=== PATIENT | male | born 1960 | race American Indian/Alaskan Native ===

== ENCOUNTER 2016-10-18 13:00 | Emergency (ER) | payer OTHER ==
[2016-10-18 13:21] VITALS: BP 115/72; PULSE 69; RESP 16; TEMP 98.1; O2SAT 98
--- NOTE | 2016-10-18 13:35 | C.PDOC ---
History Of Present Illness 55yo male, presents to the emergency department, requesting detox from Heroin. Patient denies any withdrawal symptoms. No nausea/vomiting, fevers or chills. Time Seen by Provider: 10/18/16 13:28 Chief Complaint (Nursing): Substance Abuse History Per: Patient History/Exam Limitations: no limitations Onset/Duration Of Symptoms: Days Past Medical History Reviewed: Historical Data, Nursing Documentation, Vital Signs Vital Signs: Last Vital Signs Temp 98.1 F 10/18/16 13:19 Pulse 69 10/18/16 13:19 Resp 16 10/18/16 13:19 BP 115/72 10/18/16 13:19 Pulse Ox 98 10/18/16 14:12 Family History: States: No Known Family Hx - Social History Hx Alcohol Use: Yes Hx Substance Use: Yes - Immunization History Hx Tetanus Toxoid Vaccination: Yes Hx Influenza Vaccination: Yes Review Of Systems Except As Marked, All Systems Reviewed And Found Negative. Constitutional: Negative for: Fever Cardiovascular: Negative for: Chest Pain, Palpitations Respiratory: Negative for: Shortness of Breath Gastrointestinal: Negative for: Vomiting Neurological: Negative for: Weakness, Numbness Psych: Negative for: Suicidal ideation Physical Exam - Physical Exam Appears: Non-toxic, No Acute Distress Skin: Warm, Dry, No Rash Nose: Normal Neck: Normal ROM Respiratory: No Accessory Muscle Use Extremity: Normal ROM Neurological/Psych: Oriented x3 ED Course And Treatment O2 Sat by Pulse Oximetry: 98 Progress Note: Case was discussed w/ form worker, who states that there are no detox beds available. Patient made aware; Pt will be discharged w/ a list of detox programs, and information for the detox co-ordinator/instructions for pre- screening process. Patient is agreeable with plan. All questions answered. - Physician Consult Information Time Consulting Physician Contacted: 13:29 Outcome Of Conversation: D/W CRISIS, NO BED AVAIL. Disposition Counseled Patient/Family Regarding: Diagnosis, Need For Followup - Disposition Referrals: [facility] [Outside] [facility] [Outside] [facility] [Provider Group] [facility] [Other] Disposition: HOME/ ROUTINE Disposition Time: 13:29 Condition: GOOD Instructions: Narcotic Abuse (ED) - Clinical Impression Clinical Impression: Narcotic abuse - Scribe Statement The provider has reviewed the documentation as recorded by the Scribgarland Nuno All medical record entries made by the Scribe were at my direction and personally dictated by me. I have reviewed the chart and agree that the record accurately reflects my personal performance of the history, physical exam, medical decision making, and the department course for this patient. I have also personally directed, reviewed, and agree with the discharge instructions and disposition.
== END 2016-10-18 13:55 | disposition home or self-care (01) ==
LOC: C.ER 13:00
DX: F11.10 Opioid abuse, uncomplicated (principal)

== ENCOUNTER 2017-05-11 19:52 | Inpatient (IN) | payer MEDICAID, OTHER ==
[2017-05-11 20:32] LABS: BASO % 0.7 % (0.0-2.0); EOS # 0.1 K/uL (0.0-0.7); EOS % 1.8 % (0.0-4.0); HEMATOCRIT 36.1 % (35.0-51.0); LYMPH # 2.5 K/uL (1.0-4.3); LYMPH % 38.3 % (20.0-40.0); MEAN CELL VOLUME 89.4 fL (80.0-94.0); MEAN CORPUSCULAR HEMOGLOBIN 29.7 pg (27.0-31.0); MEAN CORPUSCULAR HGB CONC 33.2 g/dL (33.0-37.0); MEAN PLATELET VOLUME 6.9 fL (7.2-11.7); MONO # 0.4 K/uL (0.0-0.8); MONO % 6.5 % (0.0-10.0); RED CELL DISTRIBUTION WIDTH 15.1 % (11.5-14.5); WHITE BLOOD COUNT 6.5 K/uL (4.8-10.8)
[2017-05-11 20:37] LABS: RBC URINE 1 /hpf (0-3); URINE BILIRUBIN NEGATIVE (NEGATIVE); URINE COLOR Yellow (YELLOW); URINE GLUCOSE (UA) NORMAL (Normal); URINE KETONE NEGATIVE (NEGATIVE); URINE LEUKOCYTE ESTERASE NEG Leu/uL (Negative); URINE PROTEIN NEGATIVE (NEGATIVE); URINE UROBILINOGEN NORMAL mg/dL (0.2-1.0); WBC URINE < 1 /hpf (0-5)
[2017-05-11 20:42] LABS: URINE BLOOD TRACE (NEGATIVE)
[2017-05-11 20:45] LABS: ALB/GLOB RATIO 0.9 (1.0-2.1); ALCOHOL SERUM 204 mg/dl (0-10); ALKALINE PHOSPHATASE 70 U/L (38-126); ALT/SGPT 49 U/L (21-72); AST/SGOT 44 U/L (17-59); BILIRUBIN,TOTAL 0.2 mg/dL (0.2-1.3); BLOOD UREA NITROGEN 11 mg/dL (9-20); CALCIUM 8.2 mg/dl (8.6-10.4); CARBON DIOXIDE 23 mmol/L (22-30); CHLORIDE 113 mmol/L (98-107); GFR AFRICAN-AMERICAN > 60; GLUCOSE,RANDOM 106 mg/dL (75-110); POTASSIUM 3.9 mmol/L (3.6-5.2); SODIUM 147 mmol/L (132-148); TOTAL PROTEIN 7.8 g/dL (6.3-8.3)
--- NOTE | 2017-05-11 20:55 | C.PDOC ---
History Of Present Illness 56 yr old male presents to the ER for alcohol detox. Patient is a pre-screened. Denies fever, chills, nausea, vomiting, headache, SI or HI. Time Seen by Provider: 05/11/17 20:21 Chief Complaint (Nursing): Substance Abuse History Per: Patient History/Exam Limitations: no limitations Onset/Duration Of Symptoms: Days Suicide/Self Injury Attempted (Context): None Modifying Factor(s): Alcohol Past Medical History Reviewed: Historical Data, Nursing Documentation, Vital Signs Vital Signs: Last Vital Signs Temp 98.1 F 05/11/17 23:32 Pulse 78 05/11/17 23:32 Resp 20 05/11/17 23:32 BP 112/74 05/11/17 23:32 Pulse Ox 98 05/11/17 23:32 Family History: States: No Known Family Hx - Social History Hx Alcohol Use: Yes Hx Substance Use: Yes - Immunization History Hx Tetanus Toxoid Vaccination: Yes Hx Influenza Vaccination: Yes Review Of Systems Except As Marked, All Systems Reviewed And Found Negative. Constitutional: Negative for: Fever, Chills Gastrointestinal: Negative for: Nausea, Vomiting Neurological: Negative for: Headache Psych: Negative for: Suicidal ideation Physical Exam - Physical Exam Appears: Non-toxic, No Acute Distress Skin: Warm, Dry, No Rash Head: Atraumatic, Normacephalic Eye(s): bilateral: Normal Inspection, PERRL, EOMI Oral Mucosa: Moist Neck: Normal, Normal ROM, Supple Cardiovascular: Rhythm Regular, No Murmur Respiratory: Normal Breath Sounds, No Rales, No Rhonchi, No Stridor, No Wheezing Gastrointestinal/Abdominal: Normal Exam, Soft, No Tenderness, No Guarding, No Rebound Extremity: Normal ROM, No Swelling Neurological/Psych: Oriented x3, Normal Speech, Normal Motor, Normal Sensation ED Course And Treatment - Laboratory Results Result Diagrams: 05/11/17 20:29 05/11/17 20:29 O2 Sat by Pulse Oximetry: 97 (RA) Pulse Ox Interpretation: Normal Progress Note: Pt was evaluated by crisis and is admitted to detox under dr Hill Medical Decision Making Medical Decision Making: PLAN: * Alcohol Serum * Drug Screen * CBC * CMP * Urinalysis Disposition - Disposition Disposition: HOSPITALIZED Disposition Time: 00:54 Condition: STABLE - Clinical Impression Clinical Impression: Alcohol use disorder, severe, dependence, Opioid use disorder, severe, dependence - PA / SERVICE TECH / Resident Statement MD/DO has reviewed & agrees with the documentation as recorded. - Scribe Statement The provider has reviewed the documentation as recorded by the Scribe Karen Evangelista All medical record entries made by the Malenaibgarland were at my direction and personally dictated by me. I have reviewed the chart and agree that the record accurately reflects my personal performance of the history, physical exam, medical decision making, and the department course for this patient. I have also personally directed, reviewed, and agree with the discharge instructions and disposition.
--- NOTE | 2017-05-12 01:39 | PCM.BM ---
<Britney Romero - Last Filed: 05/12/17 01:38> Treatment Plan Problems - Problems identified on initial assessmt Opiates Abuse Date Initiated: 05/12/17 Time Initiated: 00:45 Assessment reference: NA Status: Active Treatment assets and liabiliti Patient Assests: physically healthy, good support system, negotiates basic needs Patient Liabilities: substance abuse (Opiates, ETOH, History of crack. ) - Milieu Protocol Maintain good personal hygiene: daily Encourage regular showers, daily Remind patient to perform daily oral care Conduct patient checks and document Observation sheet: Q15 minutes Maintain personal safety: every shift Educate patient to report safety concerns to staff, every shift Monitor environment for contraband/sharps Medication safety: Monitor for expected outcome, potential side effects: every shift, Assess barriers to learning: every shift, Assess readiness for medication education: every shift <Barbra Painting - Last Filed: 05/12/17 09:47> - Diagnosis (1) Alcohol use disorder, severe, dependence Status: Acute Interventions: 05/12/17 09:47 * Assess 7x/week regarding severity of withdrawal * Educate regarding risks, benefits, side effects and alternatives of medications * Use Motivational Interviewing for abstinence * Use CBT for relapse prevention * Medication management for withdrawal symptoms * Encourage medication assisted treatment * (2) Opioid use disorder, severe, dependence Status: Acute Interventions: 05/12/17 09:47 * Assess 7x/week regarding severity of withdrawal * Educate regarding risks, benefits, side effects and alternatives of medications * Use Motivational Interviewing for abstinence * Use CBT for relapse prevention * Medication management for withdrawal symptoms * Encourage medication assisted treatment * <Areli Lorenz - Last Filed: 05/13/17 11:25> Family Contact Family involvement: Famliy/SO not involved Family contact: Patient declines to allow family contact at present - Goals for Treatment Patient goals for treatment: Complete detox and apply for LTR. Discharge/Continuing Care - Education Needs Education Needs: Patient Medication, Patient Diagnosis/Disease Process, Patient Coping Skills, Patient Anger Management skills, Patient Placement options, Patient Community resources - Discharge Discharge Criteria: No longer exhibiting s/s of withdrawal, Reduction of target symptoms Discharge to:: Substance Abuse Rehab - Treatment Team Participation Patient/Family/SO Statement: 05/13/17 11:24 "I wanna go to [facility]." Discussed with Family/SO: No Was Patient/Family/SO present at Treatment Team Meeting: Yes
[2017-05-12] MEDS: traZODone 25 mg Tab PO PRN ×2 (01:41→21:51)
[2017-05-12] MEDS ORDERED: Aluminum Hydroxide/Magnesium Hydroxide Susp (30 mL) PO PRN (09:49)
--- NOTE | 2017-05-12 14:54 | PCM.PSYCH ---
Initial Psychiatric Evaluation - Initial Psychiatric Evaluation Type of Admission: Voluntary Legal Status: Capacity Chief Complaint (in patient's own words): "I need help" History of Present Illness and Precipitating Events: The pt is seen, chart reviewed and case discussed This is a 56 year old male, who has been homeless for "a few weeks." He states that previously he was living in [place]. He is single with no children. 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 Patient reports heroin use via snorting, last used 4 bags yesterday and average 1 bundle daily for 17 years. He also reports alcohol use, last drank 4 beers and 2 liquor shots yesterday and average 4-6 cans of beer daily. He denies any cocaine/LSD/PCP/Xanax/benzodiazepine/tobacco use. He reports some withdrawal symptoms at this time. Patient reports completing "short, shelter detox" detox in [facility] recently but he relapsed immediately. He also did rehab in the past. He hopes to return to his mother's house for support and is open to attending an IOP in [place]. Past medical history: denies Past psychiatric history: denies Family psychiatric history: denies Family substance use: denies Current Medications: Active Medications Generic Name Dose Route Start Last Admin Trade Name Freq PRN Reason Stop Dose Admin Al Hydrox/Mg Hydrox/Simethicone 30 ml 05/12/17 09:49 Maalox 30 Ml PO TID PRN Indigestion / Heartburn Clonidine HCl 0.1 mg 05/12/17 09:49 05/12/17 12:16 Catapres PO 0.1 mg Q8 PRN Administration COWS Score More or Equal to 5 Gabapentin 300 mg 05/12/17 10:00 05/12/17 10:43 Neurontin PO 300 mg BID KELLY Administration Hydroxyzine HCl 25 mg 05/12/17 01:23 05/12/17 01:41 Atarax PO 25 mg Q6H PRN Administration Anxiety Loperamide HCl 2 mg 05/12/17 09:49 Imodium PO Q8 PRN Diarrhea Ondansetron HCl 4 mg 05/12/17 09:49 Zofran Tab PO Q8 PRN Nausea/Vomiting Trazodone HCl 50 mg 05/12/17 01:45 05/12/17 01:41 Desyrel PO 50 mg HS PRN Administration Insomnia Past Psychiatric History - Past Psychiatric History Previous Treatment History: None Pertinent Medical Hx (Current Medical&Sleep Prob, Allergies): Allergies Allergy/AdvReac Type Severity Reaction Status Date / Time No Known Allergies Allergy Verified 05/11/17 19:57 No Known Home Med 10/18/16 Review of Systems - Review of Systems All systems: reviewed and no additional remarkable complaints except - Neurological Neurological: absent: Convulsions, Tremor - Psychiatric Psychiatric: Abnormal Sleep Pattern, Anxiety, Change in Appetite, Depression ( mild), Irritability. absent: Auditory Hallucinations, Hallucinations, Homicidal Ideation, Suicidal Ideation, Visual Hallucinations Mental Status Examination - Personal Presentation Personal Presentation: Looks stated age - Affect Affect: Constricted, Depressed - Motor Activity Motor Activity: Calm - Reliability in Providing Information Reliability in Providing Information: Poor, due to altered mood - Speech Speech: Organized - Mood Mood: Depressed, Anxious - Formal Thought Process Formal Thought Process: No Impairment - Obsessions/Compulsions Obsessions: No Compulsions: No - Cognitive Functions Orientation: Person, Place, Situation, Time Sensorium: Alert Attention/Concentration: Attentive Abstract Thinking: [place] Estimate of Intelligence: Average Judgement: Intact, as evidence by: Insight regarding need for hospitalization Memory: Recent intact, as evidence by: Ability to recall events of the day, Remote intact, as evidenced by: Abilit to recall sig. life events - Risk Risk: Diminished functioning - Strength & Assets Inventory Strength & Assets Inventory: Cooperative - Limitations Limitations: Other DSM 5 DX - DSM 5 DSM 5 Diagnosis: Opioid use disorder, severe Opioid withdrawal Alcohol use disorder, severe Alcohol withdrawal - Recommended/Plan of Treatment Treatment Recommendations and Plan of Treatment: Methadone detox No need for alcohol detox he drinks less and was out not too long Gabapentin for augmentation As needed medications Attend groups and activities Supportive therapy and psychoeducation [place] for abstinence CBT for relapse prevention Encourage MAT Refer to rehab or IOP, and self-help groups. 32 min Projected ELOS: 4-5 days Prognosis: Good with treatment Discharge Plan and Discharge Criteria: No withdrawal symptoms Refer to rehab
--- NOTE | 2017-05-13 15:00 | PCM.PYCHPN ---
Psychiatric Progress Note - Psychiatric Progress Note Patient seen today, length of contact: 16 min Patient Chief Complaint: "I'm great" Problems Identified/Issues Discussed: This patient was seen, chart reviewed, and case discussed with staff. Patient reports feeling "much better," reporting improved sleep and mood. He denies any withdrawal symptoms. Patient is compliant with medications and denies any side effects. Symptoms are improving but need more time to stabilize. After care discussed, was initially considering outpatient but is now considering inpatient/long-term rehab after discussing with sister. Support and psychoeducation given. Medication Change: Yes (Methadone taper ) Medical Record Reviewed: Yes Mental Status Examination - Cognitive Function Orientation: Person, Place, Situation, Time Memory: Intact Attention: WNL Concentration: WNL Association: WNL Fund of Knowledge: WNL - Mood Mood: Anxious - Affect Affect: Broad - Speech Speech: Appropriate - Formal Thought Process Formal Thought Process: No Impairment - Suicidal Ideation Suicidal Ideation: No - Homicidal Ideation Homicidal Ideation: No Goal/Treatment Plan - Goal/Treatment Plan Need for Continued Stay: Remain at risks for inpatient hospitalization, Discharge may exacerbated symptoms, Severe functional impairment Progress Toward Problem(s) and Goals/Treatment Plan: Methadone detox No need for alcohol detox he drinks less and was out not too long Gabapentin for augmentation As needed medications Attend groups and activities Supportive therapy and psychoeducation [place] for abstinence CBT for relapse prevention Encourage MAT Refer to rehab or IOP, and self-help groups. Estimated Date of D/C: 05/14/17
[2017-05-14 06:47] VITALS: O2SAT 100
[2017-05-14 08:44] VITALS: BP 118/78; PULSE 65; RESP 20; TEMP 98.2
--- NOTE | 2017-05-14 10:16 | PCM.PYCHDC ---
Mental Status Examination - Mental Status Examination Orientation: Person, Place, Situation, Time Memory: Intact Mood: Neutral Affect: Constricted Speech: Soft Attention: WNL Concentration: WNL Association: WNL Fund of Knowledge: WNL Formal Thought Process: No Impairment Description of patient's judgement and insight: good, fair Psychotic Thoughts and Behaviors: denies any AVH Suicidal Ideation: No Current Homicidal Ideation?: No Discharge Summary - Discharge Note Reason for Hospitalization: The pt is seen, chart reviewed and case discussed This is a 56 year old male, who has been homeless for "a few weeks." He states that previously he was living in [place]. He is single with no children. 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 Patient reports heroin use via snorting, last used 4 bags yesterday and average 1 bundle daily for 17 years. He also reports alcohol use, last drank 4 beers and 2 liquor shots yesterday and average 4-6 cans of beer daily. He denies any cocaine/LSD/PCP/Xanax/benzodiazepine/tobacco use. He reports some withdrawal symptoms at this time. Patient reports completing "short, penitentiary detox" detox in [facility] recently but he relapsed immediately. He also did rehab in the past. He hopes to return to his mother's house for support and is open to attending an IOP in [place]. Consultations:: List each consultation separately and include: 1. Reason for request. 2. Findings. 3. Follow-up Summary of Hospital Course include:: 1. Description of specific treatment plan utilized for patients during their course of treatmen. 2. Summarize the time- course for resolution of acute symptoms and/or regressed behaviors. 3. Describe issues identified and worked on during hospitalization. 4. Describe medication utilized. 5. Describe medical problems identified and treated. 6. Reassessment of suicide risk Summary of Hospital Course: During the course of his stay, patient (pt) started progressively improving and he no longer remained irritable, depressed, and anxious. His mood and anxiety were improved and he started attending groups and meetings and started socializing. Patient denied any feelings of hopelessness, helplessness, and worthlessness, denied any problem with the sleep or appetite, denied suicidal ideation or homicidal ideation. Pt denied any auditory or visual hallucinations. Some changes were made in his current medications and patient was discharged on following medications. He tolerated these medications very well and denied any side effects. Pt is to attend [facility] rehab in [place]. - Final Diagnosis (DSM 5) Condition upon Discharge: STABLE DSM 5: Opioid use disorder, severe Opioid withdrawal Alcohol use disorder, severe Alcohol withdrawal Disposition: HOME/ ROUTINE Follow-up Treatment Plan: Education: Pt was educated and counseled about the risks and benefits of taking and not taking medications. Pt was educated and counseled about the risks of drinking and abusing drugs. Pt was educated and counseled to go to the ER or call 911 if pt develop suicidal ideation or homicidal ideation, worsening of symptoms or severe side effects of the meds. - Smoking Cessation Smoking Cessation Medication prescribed: No - Antipsychotic Medications Pt discharged on 2 or more routine antipsychotic medications: No
== END 2017-05-14 10:50 | disposition home or self-care (01) | DRG 895 ==
LOC: C.ER 19:52 → C.7D 05-12 00:08
PROC: HZ2ZZZZ Detoxification Services for Substance Abuse Treatment (ICD-10-PCS; principal; 2017-05-12)
PROC: HZ52ZZZ Individual Psychotherapy for Substance Abuse Treatment, Cognitive-Behavioral (ICD-10-PCS; 2017-05-12)
PROC: HZ42ZZZ Group Counseling for Substance Abuse Treatment, Cognitive-Behavioral (ICD-10-PCS; 2017-05-12)
PROC: HZ59ZZZ Individual Psychotherapy for Substance Abuse Treatment, Supportive (ICD-10-PCS; 2017-05-12)
PROC: HZ56ZZZ Individual Psychotherapy for Substance Abuse Treatment, Psychoeducation (ICD-10-PCS; 2017-05-12)
PROC: HZ46ZZZ Group Counseling for Substance Abuse Treatment, Psychoeducation (ICD-10-PCS; 2017-05-12)
DX: F10.230 Alcohol dependence with withdrawal, uncomplicated (principal); F11.23 Opioid dependence with withdrawal; Y90.7 Blood alcohol level of 200-239 mg/100 ml; Z59.0 Homelessness

== ENCOUNTER 2017-05-24 18:04 | Emergency (ER) | payer MEDICAID, OTHER ==
--- NOTE | 2017-05-24 19:11 | C.PDOC ---
History Of Present Illness Howie Yap is a 56 year old male, with no past medical history, who presents to the emergency department complaining of pain and swelling on right elbow onset since yesterday. Patient reports hitting his right elbow on a hard surface while at work yesterday. Patient states the pain is worst with movement. He denies any other medical complaints. PMD: None provided. Time Seen by Provider: 05/24/17 18:26 Chief Complaint (Nursing): Upper Extremity Problem/Injury History Per: Patient History/Exam Limitations: no limitations Onset/Duration Of Symptoms: Days (x1) Current Symptoms Are (Timing): Still Present Quality: "Pain" Severity: Mild Pain Scale Rating Of: 9 Exacerbating Factor(s): Movement Past Medical History Reviewed: Historical Data, Nursing Documentation, Vital Signs Vital Signs: Last Vital Signs Temp 98.6 F 05/24/17 20:04 Pulse 85 05/24/17 20:04 Resp 18 05/24/17 20:04 BP 122/77 05/24/17 20:04 Pulse Ox 96 05/24/17 21:07 - Medical History PMH: Denies: Diabetes, Hepatitis, HIV, HTN, Seizures, Sexually Transmitted Disease Surgical History: No Surg Hx - [facility] DETOXIFICATION SERVICES FOR SUBSTANCE ABUSE TREATMENT (05/12/17) [facility] FOR SUBSTANCE ABUSE TREATMENT, PSYCHOEDUCATION (05/12/17) [facility] FOR SUBSTANCE ABUSE, COGNITIVE BEHAVIORAL (05/12/17) INDIV PSYCHOTHERAPY FOR SUBSTANCE ABUSE TREATMENT, SUPPORT (05/12/17) INDIV PSYCHOTHERAPY FOR SUBSTANCE ABUSE, COGNITIV BEHAVIORAL (05/12/17) INDIV PSYCHOTHERAPY FOR SUBSTANCE ABUSE, PSYCHOEDUCATION (05/12/17) Family History: States: Unknown Family Hx - Social History Hx Tobacco Use: No (former) Hx Alcohol Use: No (former) Hx Substance Use: No (former) - Immunization History Hx Tetanus Toxoid Vaccination: Yes Hx Influenza Vaccination: Yes Review Of Systems Except As Marked, All Systems Reviewed And Found Negative. Musculoskeletal: Positive for: Arm Pain (right elbow w/ swelling) Physical Exam - Physical Exam Appears: Well, No Acute Distress Skin: Normal Color, Warm, Dry Head: Atraumatic, Normacephalic Eye(s): bilateral: Normal Inspection, PERRL, EOMI Neck: Normal, Normal ROM, Supple Extremity: No Normal ROM (limited), Tenderness (olecranon tender to palpation), No Deformity, Swelling (on olecranon) Neurological/Psych: Oriented x3, Normal Speech ED Course And Treatment O2 Sat by Pulse Oximetry: 96 (RA) Pulse Ox Interpretation: Normal Medical Decision Making Medical Decision Making: Initial Impression: right elbow pain Initial Plan: --Ext Upper w/o contrast right [CT] --Elbow right 3 views routine [RAD] --reevaluation 20:[address] FINDINGS: Bones/joints: A well corticated 5 mm bone fragment is noted adjacent to the coronoid process. Tiny bone fragments are noted posterior and adjacent to the olecranon. The radial head and distal humerus appear normal. Soft tissues: There is soft tissue swelling noted over the olecranon. IMPRESSION: 1. Soft tissue swelling in the region of the olecranon bursa could represent a fluid distended bursa or soft tissue hematoma 2. Small bone fragments noted adjacent to the olecranon. These could represent a fracture of the non-articular posterior margin of the olecranon at the triceps insertion site. Dystrophic calcification within the bursa/the distal triceps tendon is another consideration. 3. Well corticated bone fragment contiguous with the coronoid process. This could represent an old fracture or accessory ossicle. 22:50 -Will treat patient with long arm posterior splint. Upon provider reevaluation patient is feeling better, is medically stable, and requires no further treatment in the ED at this time. Patient will be discharged with Rx for Ultram. Counseling was provided and all questions were answered regarding diagnosis and need for follow up with orthopedist. There is agreement to discharge plan. Return if symptoms persist or worsen. Disposition - Disposition Referrals: Victor Manuel Jacobs III, MD [Staff Provider] - Disposition: HOME/ ROUTINE Disposition Time: 20:58 Condition: STABLE Additional Instructions: Follow up with Orthopedist within 1-2 days. Return to ED if feel worse. Prescriptions: traMADol [Ultram] 50 mg PO Q6 #30 tab Instructions: Elbow Fracture in Adults (ED) Forms: [facility] ([place]) - Clinical Impression Clinical Impression: Elbow fracture, right - Scribe Statement Win Gan All medical record entries made by the Scribe were at my direction and personally dictated by me. I have reviewed the chart and agree that the record accurately reflects my personal performance of the history, physical exam, medical decision making, and the department course for this patient. I have also personally directed, reviewed, and agree with the discharge instructions and disposition.
[2017-05-24 20:05] VITALS: BP 122/77; PULSE 85; RESP 18; TEMP 98.6
--- NOTE | 2017-05-24 20:10 | CT ---
EXAM: CT Right Upper Extremity Without Intravenous Contrast, Elbow EXAM DATE/TIME: Exam ordered 05/24/2017 7:11 PM CLINICAL HISTORY: 56 years old, male; Pain; Elbow; Right; Additional info: Elbow injury, abnormal xray TECHNIQUE: Axial computed tomography images of the right elbow without intravenous contrast. All CT scans at this facility use one or more dose reduction techniques, viz.: automated exposure control; ma/kV adjustment per patient size (including targeted exams where dose is matched to indication; i.e. head); or iterative reconstruction technique. Coronal and sagittal reformatted images were created and reviewed. COMPARISON: No relevant prior studies available. FINDINGS: Bones/joints: A well corticated 5 mm bone fragment is noted adjacent to the coronoid process. Tiny bone fragments are noted posterior and adjacent to the olecranon. The radial head and distal humerus appear normal. Soft tissues: There is soft tissue swelling noted over the olecranon. IMPRESSION: 1. Soft tissue swelling in the region of the olecranon bursa could represent a fluid distended bursa or soft tissue hematoma 2. Small bone fragments noted adjacent to the olecranon. These could represent a fracture of the non-articular posterior margin of the olecranon at the triceps insertion site. Dystrophic calcification within the bursa/the distal triceps tendon is another consideration. 3. Well corticated bone fragment contiguous with the coronoid process. This could represent an old fracture or accessory ossicle.
[2017-05-24 20:46] VITALS: O2SAT 96
--- NOTE | 2017-05-25 09:05 | RAD ---
PROCEDURE: Radiographs of the right elbow. HISTORY: injury COMPARISON: No prior. FINDINGS: BONES: Bone alignment and mineralization are normal. There are multiple ossific densities posterior to the olecranon process. There is no acute displaced fracture. A small ossific density superior to the coronoid process of ulna may represent an old fracture. JOINTS: Normal. No osteoarthritis. SOFT TISSUES: There is moderate posterior soft tissue swelling. JOINT EFFUSION: None. OTHER FINDINGS: None. IMPRESSION: Findings may represent olecranon bursitis with calcifications in the tendon. The possibility of a fracture is less likely in the absence of joint effusion however cannot be entirely excluded and correlation with point tenderness is advised.
== END 2017-05-24 21:04 | disposition home or self-care (01) ==
LOC: C.ER 18:04
DX: S42.402A Unspecified fracture of lower end of left humerus, initial encounter for closed fracture (principal); W22.8XXA Striking against or struck by other objects, initial encounter; Y92.89 Other specified places as the place of occurrence of the external cause; Y99.0 Civilian activity done for income or pay

== ENCOUNTER 2018-06-25 13:40 | Emergency (ER) | payer SELFPAY ==
[2018-06-25 14:00] VITALS: BMI 23.6
[2018-06-25 14:02] VITALS: RESP 18; O2SAT 98
--- NOTE | 2018-06-25 14:07 | C.PDOC ---
History Of Present Illness PT eloped prior to being seen Time Seen by Provider: 06/25/18 14:06 Chief Complaint (Nursing): Substance Abuse Past Medical History Vital Signs: Last Vital Signs Temp 99 F 06/25/18 14:00 Pulse 81 06/25/18 14:00 Resp 18 06/25/18 14:00 BP 112/77 06/25/18 14:00 Pulse Ox 98 06/25/18 14:00 - Medical History PMH: Denies: Diabetes, Hepatitis, HIV, HTN, Seizures, Sexually Transmitted Disease - [facility] Procedures DETOXIFICATION SERVICES FOR SUBSTANCE ABUSE TREATMENT (05/12/17) GROUP CHRONOMETER TESTER FOR SUBSTANCE ABUSE TREATMENT, PSYCHOEDUCATION (05/12/17) GROUP CHRONOMETER TESTER FOR SUBSTANCE ABUSE, COGNITIVE BEHAVIORAL (05/12/17) INDIV PSYCHOTHERAPY FOR SUBSTANCE ABUSE TREATMENT, SUPPORT (05/12/17) INDIV PSYCHOTHERAPY FOR SUBSTANCE ABUSE, COGNITIV BEHAVIORAL (05/12/17) INDIV PSYCHOTHERAPY FOR SUBSTANCE ABUSE, PSYCHOEDUCATION (05/12/17) Family History: States: Unknown Family Hx - Social History Hx Tobacco Use: No (former) Hx Alcohol Use: Yes (former) Hx Substance Use: Yes (heroin) - Immunization History Hx Tetanus Toxoid Vaccination: No Hx Influenza Vaccination: No Hx Pneumococcal Vaccination: No ED Course And Treatment O2 Sat by Pulse Oximetry: 98 Disposition - Disposition Disposition: AGAINST MEDICAL ADVICE Disposition Time: 14:26 Condition: UNKNOWN Forms: [facility] (B[place]ian) - Clinical Impression Clinical Impression: Desire for detoxification
[2018-06-25 14:09] VITALS: BP 148/89; PULSE 64; TEMP 98.5
== END 2018-06-25 14:17 | disposition left against medical advice (07) ==
LOC: C.ER 13:40
DX: Z02.89 Encounter for other administrative examinations (principal)

== ENCOUNTER 2018-06-26 19:49 | Inpatient (IN) | payer MEDICAID ==
[2018-06-26 19:49] VITALS: BMI 23.6
--- NOTE | 2018-06-26 20:32 | C.PDOC ---
History Of Present Illness 57 year old male presents to the Ed requesting detox for heroin abuse. Patient SI/HI, hallucinations, other medical complaints. Time Seen by Provider: 06/26/18 20:03 Chief Complaint (Nursing): Substance Abuse History Per: Patient History/Exam Limitations: no limitations Onset/Duration Of Symptoms: Days Current Symptoms Are (Timing): Still Present Suicide/Self Injury Attempted (Context): None Modifying Factor(s): Narcotics Associated Symptoms: denies: Depression, Suicidal Thoughts, Suicidal Plan Recent travel outside of the [place]: No Additional History Per: Patient Past Medical History Reviewed: Historical Data, Nursing Documentation, Vital Signs Vital Signs: Last Vital Signs Temp 98.5 F 06/26/18 20:02 Pulse 81 06/26/18 20:02 Resp 20 06/26/18 20:02 BP 126/74 06/26/18 20:02 Pulse Ox 98 06/26/18 20:02 - Medical History PMH: No Chronic Diseases Denies: Diabetes, Hepatitis, HIV, HTN, Seizures, Sexually Transmitted Disease Surgical History: No Surg Hx - [facility] Procedures DETOXIFICATION SERVICES FOR SUBSTANCE ABUSE TREATMENT (05/12/17) GROUP BOAT TESTER FOR SUBSTANCE ABUSE TREATMENT, PSYCHOEDUCATION (05/12/17) GROUP BOAT TESTER FOR SUBSTANCE ABUSE, COGNITIVE BEHAVIORAL (05/12/17) INDIV PSYCHOTHERAPY FOR SUBSTANCE ABUSE TREATMENT, SUPPORT (05/12/17) INDIV PSYCHOTHERAPY FOR SUBSTANCE ABUSE, COGNITIV BEHAVIORAL (05/12/17) INDIV PSYCHOTHERAPY FOR SUBSTANCE ABUSE, PSYCHOEDUCATION (05/12/17) Family History: States: Unknown Family Hx - Social History Hx Tobacco Use: No (former) Hx Alcohol Use: Yes (former) Hx Substance Use: Yes (heroin) - Immunization History Hx Tetanus Toxoid Vaccination: No Hx Influenza Vaccination: No Hx Pneumococcal Vaccination: No Review Of Systems Constitutional: Negative for: Fever, Chills Cardiovascular: Negative for: Chest Pain, Palpitations Respiratory: Negative for: Shortness of Breath Gastrointestinal: Negative for: Nausea, Vomiting, Abdominal Pain Skin: Negative for: Rash Neurological: Negative for: Weakness, Numbness Psych: Negative for: Depression, Suicidal ideation Physical Exam - Physical Exam Appears: Non-toxic, No Acute Distress Skin: Normal Color, Warm, Dry Head: Atraumatic, Normacephalic Eye(s): bilateral: Normal Inspection Neck: Normal ROM, Supple Chest: Symmetrical Cardiovascular: Rhythm Regular Respiratory: Normal Breath Sounds, No Rales, No Rhonchi, No Wheezing Gastrointestinal/Abdominal: Soft, No Tenderness, No Guarding, No Rebound Extremity: Normal ROM, No Tenderness, No Swelling Neurological/Psych: Oriented x3, Normal Speech, Normal Cognition Gait: Steady ED Course And Treatment - Laboratory Results Result Diagrams: 06/26/18 20:37 06/26/18 20:37 O2 Sat by Pulse Oximetry: 98 (ON RA) Pulse Ox Interpretation: Normal Medical Decision Making Medical Decision Making: Plan: * Labs * UA * Crisis 20:56 - Medically cleared Disposition - Disposition Disposition: HOSPITALIZED Disposition Time: 22:27 Condition: STABLE - Clinical Impression Clinical Impression: Opioid use disorder, severe, dependence - Scribe Statement The provider has reviewed the documentation as recorded by the Scribe Todd Quinn All medical record entries made by the Scribe were at my direction and person ally dictated by me. I have reviewed the chart and agree that the record accurately reflects my personal performance of the history, physical exam, medical decision making, and the department course for this patient. I have also personally directed, reviewed, and agree with the discharge instructions and disposition. Decision To Admit - Pt Status Changed To: Hospital Disposition Of: Inpatient - Admit Certification Admit to Inpatient:: After my assessment, the patient will require hospitalization for at least two midnights. This is because of the severity of symptoms shown, intensity of services needed, and/or the medical risk in this patient being treated as an outpatient. - InPatient: Physician Admission Certification: I certify that this patient requires 2 or more midnights of care for the following reason:: needs detox - . Bed Request Type: Detox Admitting Physician: Lulu Alva Patient Diagnosis: Opioid use disorder, severe, dependence
[2018-06-26 20:42] LABS: BASO % 0.8 % (0.0-2.0); EOS # 0.1 K/uL (0.0-0.7); EOS % 2.7 % (0.0-4.0); HEMOGLOBIN 13.6 g/dL (12.0-18.0); LYMPH # 1.3 K/uL (1.0-4.3); LYMPH % 24.3 % (20.0-40.0); MEAN CORPUSCULAR HEMOGLOBIN 30.7 pg (27.0-31.0); MEAN CORPUSCULAR HGB CONC 32.4 g/dL (33.0-37.0); MONO # 0.4 K/uL (0.0-0.8); MONO % 7.4 % (0.0-10.0); NEUT # 3.3 K/uL (1.8-7.0); NEUT % 64.8 % (50.0-75.0); NRBC % 0.1 % (0.0-2.0); RBC 4.41 Mil/uL (4.40-5.90); RED CELL DISTRIBUTION WIDTH 13.6 % (11.5-14.5); WHITE BLOOD COUNT 5.1 K/uL (4.8-10.8)
[2018-06-26 20:46] LABS: MEAN CELL VOLUME 94.9 fL (80.0-94.0)
[2018-06-26 20:55] LABS: ALB/GLOB RATIO 1.5 (1.0-2.1); ALBUMIN 4.7 g/dL (3.5-5.0); ALT/SGPT 31 U/L (21-72); AST/SGOT 57 U/L (17-59); BLOOD UREA NITROGEN 15 mg/dL (9-20); CALCIUM 9.2 mg/dl (8.6-10.4); GFR NON-AFRICAN AMERICAN 53
[2018-06-26 20:58] LABS: SQUAMOUS EPITHIAL < 1 /hpf (0-5); URINE BILIRUBIN NEGATIVE (NEGATIVE); URINE BLOOD 1+ (NEGATIVE); URINE CLARITY Clear (Clear); URINE COLOR Yellow (YELLOW); URINE GLUCOSE (UA) NORMAL (Normal); URINE LEUKOCYTE ESTERASE NEG Leu/uL (Negative); URINE PROTEIN NEGATIVE (NEGATIVE)
[2018-06-26 21:08] LABS: BARBITURATES, UR NEGATIVE (NEGATIVE); BENZODIAZEPINES, UR NEGATIVE (NEGATIVE); PHENCYCLIDINE, UR NEGATIVE (NEGATIVE)
[2018-06-26 21:09] LABS: OPIATES, UR POSITIVE (NEGATIVE)
--- NOTE | 2018-06-27 06:10 | PCM.BM ---
Treatment Plan Problems - Problems identified on initial assessmt Denial Date Initiated: 06/27/18 Time Initiated: 06:10 Assessment reference: NA Status: Active Defensive Coping Date Initiated: 06/27/18 Time Initiated: 06:12 Assessment reference: NA Status: Active Treatment assets and liabiliti Patient Assests: motivated, ADL independent, physically healthy, good support system, negotiates basic needs Patient Liabilities: substance abuse - Milieu Protocol Maintain good personal hygiene: daily Encourage regular showers, daily Remind patient to perform daily oral care, daily Assist patient to perform ADL's Maintain personal safety: every shift Educate patient to report safety concerns to staff, every shift Monitor environment for contraband/sharps Medication safety: Monitor for expected outcome, potential side effects: every shift, Assess barriers to learning: every shift, Assess readiness for medication education: every shift
[2018-06-29 09:05] VITALS: RESP 18
[2018-06-29] MEDS: Multiple Vitamins Tab PO SCH (09:13)
[2018-06-29] MEDS ORDERED: Pneumococcal 23-Valent Vaccine IM ONE (10:30)
--- NOTE | 2018-06-29 11:17 | PCM.PYCHPN ---
Psychiatric Progress Note - Psychiatric Progress Note Patient seen today, length of contact: 17 min Patient Chief Complaint: "Not good" Problems Identified/Issues Discussed: The pt is seen, chart reviewed, case is discussed with staff. The pt is compliant with medications and reports no side-effects. Symptoms are improving but needs more time to stabilize and to avoid relapse. Pt attends groups and activities. Support given, psycho-education provided. After care discussed. Medication Change: Yes (detox changes daily) Medical Record Reviewed: Yes Mental Status Examination - Cognitive Function Orientation: Person, Place, Situation, Time Memory: Intact Attention: WNL Concentration: WNL Association: WNL Fund of Knowledge: WNL - Mood Mood: Depressed, Anxious - Affect Affect: Constricted - Speech Speech: Appropriate - Formal Thought Process Formal Thought Process: No Impairment - Suicidal Ideation Suicidal Ideation: No - Homicidal Ideation Homicidal Ideation: No Goal/Treatment Plan - Goal/Treatment Plan Need for Continued Stay: Discharge may exacerbated symptoms, Severe functional impairment Progress Toward Problem(s) and Goals/Treatment Plan: Continue medications Support and psychoeducation daily Attend groups and activities daily Individual therapy After care planning by counselors and the team
--- NOTE | 2018-06-30 08:38 | PCM.PYCHDC ---
Mental Status Examination - Mental Status Examination Orientation: Person Discharge Summary - Discharge Note Consultations:: List each consultation separately and include: 1. Reason for request. 2. Findings. 3. Follow-up Summary of Hospital Course include:: 1. Description of specific treatment plan utilized for patients during their course of treatmen. 2. Summarize the time- course for resolution of acute symptoms and/or regressed behaviors. 3. Describe issues identified and worked on during hospitalization. 4. Describe medication utilized. 5. Describe medical problems identified and treated. 6. Reassessment of suicide risk Summary of Hospital Course: The pt is referred to [facility]. - Final Diagnosis (DSM 5) Condition upon Discharge: STABLE Disposition: HOME/ ROUTINE Follow-up Treatment Plan: Continue medications Support and psychoeducation daily Attend groups and activities daily Individual therapy After care planning by counselors and the team Prescriptions/Medication Reconciliation: hydrOXYzine HCl [Atarax] 25 mg PO BID PRN #60 tab PRN Reason: Anxiety traZODone [Desyrel] 50 mg PO HS PRN #30 tab PRN Reason: Insomnia
[2018-06-30] MEDS: Multiple Vitamins Tab PO SCH (09:52)
[2018-06-30 11:36] VITALS: BP 105/65; PULSE 71; TEMP 98.9; O2SAT 98
== END 2018-06-30 11:37 | disposition home or self-care (01) | DRG 772 ==
LOC: C.ER 19:49 → C.7D 22:04
PROVIDERS: ADMIT Psychiatry & Neurology Psychiatry; ATTEND Psychiatry & Neurology Psychiatry
PROC: HZ2ZZZZ Detoxification Services for Substance Abuse Treatment (ICD-10-PCS; principal; 2018-06-26)
PROC: HZ46ZZZ Group Counseling for Substance Abuse Treatment, Psychoeducation (ICD-10-PCS; 2018-06-26)
PROC: HZ59ZZZ Individual Psychotherapy for Substance Abuse Treatment, Supportive (ICD-10-PCS; 2018-06-26)
DX: F11.20 Opioid dependence, uncomplicated (principal); R44.3 Hallucinations, unspecified; F10.10 Alcohol abuse, uncomplicated; Y90.0 Blood alcohol level of less than 20 mg/100 ml